=== PATIENT | male | born 1975 | race Caucasian/White ===

== ENCOUNTER 2022-12-08 13:43 | Outpatient (CLI) | payer BC ==
[~2022-12-08 13:43] MED LIST: Iopamidol 300 61% 100 ML VIAL FS ONE
== END 2022-12-08 13:44 | disposition home or self-care (01) ==
LOC: CSHCT 13:43
PROVIDERS: ATTEND Specialist
DX: R22.1 Localized swelling, mass and lump, neck (principal)
CPT/HCPCS: 70491